=== PATIENT | female | born 1940 | race African-American/Black ===

== ENCOUNTER 2022-02-15 13:11 | Emergency (ER) | payer BC ==
[~2022-02-15] VITALS: Ht 162.6 cm; Wt 89.3 kg
[2022-02-15] MEDS ORDERED: NALOXONE 0.4 MG/ML VIAL. IV ONE (14:00)
[2022-02-15 14:09] LABS: BASO % 1 % (0-3); EOS # 0.2 x10^3/uL (0.0-0.7); EOS % 4 % (0-3); HEMATOCRIT 28.4 % (36.0-47.0); HEMOGLOBIN 9.1 g/dL (12.0-15.5); LYMPH # 0.6 x10^3/uL (1.0-4.8); LYMPH % 17 % (24-48); MEAN CORPUSCULAR HEMOGLOBIN 32 pg (25-35); MEAN CORPUSCULAR HGB CONC 32 g/dL (31-37); MEAN CORPUSCULAR VOLUME 98 fL (79-100); MONO # 0.1 x10^3/uL (0.0-1.1); MONO % 4 % (0-9); NEUT # 2.7 x10^3/uL (1.8-7.7); NEUT % 75 % (31-73); PLATELET COUNT 196 x10^3/uL (140-400); RED BLOOD COUNT 2.89 x10^6/uL (3.50-5.40); RED CELL DISTRIBUTION WIDTH 17.4 % (11.5-14.5); WHITE BLOOD COUNT 3.7 x10^3/uL (4.0-11.0)
[2022-02-15 14:47] LABS: BACTERIA,URINE 0 /HPF (0-FEW)
--- NOTE | 2022-02-15 14:48 | RAD ---
AP chest. HISTORY: Decreased level of consciousness, lethargy AP view was taken of the chest. Patient's taken a poor inspiration. There is mild atelectasis or infi ltrate at the right costophrenic angle. No other confluent infiltrates are noted. Heart is mildly pro minent. IMPRESSION: 1. Poor inspiration. 2. Mild atelectasis or infiltrate at the right costophrenic angle. Electronically signed by: Rah Mae MD (02/15/2022 2:46 PM) [facility]
--- NOTE | 2022-02-15 15:00 | RAD ---
CT HEAD/BRAIN WO History: Reason: Decreased LOC, lethargy / Spl. Instructions: / History: Comparison: None. Technique: Noncontrast CT imaging was performed of the head. Exposure: One or more of the following individualized dose reduction techniques were utilized for thi s examination: 1. Automated exposure control 2. Adjustment of the mA and/or kV according to patient size 3. Use of iterative reconstruction technique. Findings: No intracranial hemorrhage. No mass effect. No hydrocephalus. Mild foci of decreased attenuation within the hemispheric white matter, most often due to chronic lynnette rovascular ischemia. Intracranial atheromatous calcifications. Partially empty sella, often incidenta l. Imaged orbits are unremarkable. Imaged paranasal sinuses and mastoid air cells are clear. No acute ca lvarial fracture. Impression: 1. No acute intracranial abnormality. Electronically signed by: Hunter Morin DO (02/15/2022 2:58 PM) [facility]
[2022-02-15 15:19] LABS: CALCIUM 8.6 mg/dL (8.5-10.1); CREATININE 5.2 mg/dL (0.6-1.0); GFR 9.7; POTASSIUM 3.6 mmol/L (3.5-5.1)
[2022-02-15 15:24] LABS: ALBUMIN 3.2 g/dL (3.4-5.0); ALBUMIN/GLOBULIN RATIO 0.8 (1.0-1.7); MAGNESIUM 2.2 mg/dL (1.8-2.4); TOTAL BILIRUBIN 0.5 mg/dL (0.2-1.0); TOTAL PROTEIN 7.2 g/dL (6.4-8.2)
[2022-02-15 16:20] VITALS: BP 113/34
--- NOTE | 2022-02-15 16:26 | PHYS DOC ---
Past Medical History Additional Past Medical Histor: dialysis,hyperparathyroid, hepatitis C Past Surgical History: Other Additional Past Surgical Histo: left arm fistula, unknown Smoking Status: Never Smoker Alcohol Use: None General Adult EDM: Chief Complaint: ALTERED MENTAL STATUS HPI: HPI: Patient is a 81-year-old female who presents to the emergency department with complaints of sleepiness during hemodialysis. Patient was at [facility] [place] when she continued to be very sleepy as she did not sleep very well last night. Because of this they decided to not start her dialysis and called 911 to have her transported to the emergency department for further evaluation. Transporting EMS nuclear logging engineer reported a hypotensive blood pressure of 80 systolic in route, in route glucose level is 125. Patient states that she did not sleep very well last night she gets this way sometimes. Patient denies chest pains, shortness of breath, fever or chills, syncopal or near syncopal episodes, denies dizziness, denies visual disturbances. Patient states she is a hemodialysis patient and performs hemodialysis on Fridays. Patient reports had normal dialysis this past Tuesday. Patient denies other physical complaints or physical concerns. Review of Systems: Review of Systems: 14 body systems of review of systems have been reviewed. See HPI for pertinent positives and negative responses, otherwise all other systems are negative, nonpertinent or noncontributory. Constitutional: Negative except as outlined in HPI above. Skin: Negative except as outlined in HPI above. Eyes: Negative except as outlined in HPI above. HENT: Negative except as outlined in HPI above. Respiratory: Negative except as outlined in HPI above. Cardiovascular: Negative except as outlined in HPI above. GI: Negative except as outlined in HPI above. : Negative except as outlined in HPI above. Musculoskeletal: Negative except as outlined in HPI above. Integument: Negative except as outlined in HPI above. Neurologic: Negative except as outlined in HPI above. Endocrine: Negative except as outlined in HPI above. Lymphatic: Negative except as outlined in HPI above. Psychiatric: Negative except as outlined in HPI above. Heart Score: C/O Chest Pain: No Risk Factors: Risk Factors: DM, Current or recent (<one month) smoker, HTN, HLP, family history of CAD, obesity. Risk Scores: Score 0 - 3: 2.5% MACE over next 6 weeks - Discharge Home Score 4 - 6: 20.3% MACE over next 6 weeks - Admit for Clinical Observation Score 7 - 10: 72.7% MACE over next 6 weeks - Early Invasive Strategies Current Medications: Current Medications Medications (Trade) Dose Ordered Sig/Zhen Start Time Stop Time Status Last Admin Dose Admin Naloxone HCl (Narcan) 0.4 mg 1X ONCE 02/15/22 14:00 02/15/22 14:01 DC 02/15/22 14:13 0.4 MG Allergies: Allergies: Allergies Coded Allergies Type Severity Reaction Last Updated Verified Iodinated Contrast Media Allergy Intermediate 02/15/22 Yes tramadol Allergy Intermediate Swelling 02/15/22 Yes ibuprofen Adverse Reaction Intermediate INTERNAL BLEEDING 02/15/22 Yes naproxen Adverse Reaction Intermediate INTERNAL BLEEDING 02/15/22 Yes Physical Exam: PE: Constitutional: Well developed, well nourished, no acute distress, non-toxic appearance. 81-year-old female in no apparent distress. HENT: Normocephalic, atraumatic. Eyes: Conjunctiva normal, no discharge. Neck: Normal range of motion, no stridor. Cardiovascular: No cyanosis appreciated, distal cap refill less than 2 seconds. Lungs & Thorax: Patient is in no respiratory distress, no audible adventitious lung sounds appreciated. Abdomen: Nontender, no abnormalities noted. Skin: Warm, dry, no erythema, no rash. Back: No tenderness, no deformities. Extremities: No tenderness, no cyanosis, no clubbing, ROM intact, no edema. There is a hemodialysis graft left upper arm with positive bruit and thrill. Neurologic: Alert and oriented X 3, normal motor function, normal sensory function, no focal deficits noted. Patient does appear lethargic, is easily arousable to verbal stimuli, answers questions appropriately. Psychologic: Affect normal, judgement normal, mood normal. Current Patient Data: Labs: Laboratory Tests Test 02/15/22 13:25 02/15/22 13:35 02/15/22 14:08 02/15/22 14:28 Glucose (Fingerstick) 163 mg/dL White Blood Count 3.7 x10^3/uL Red Blood Count 2.89 x10^6/uL Hemoglobin 9.1 g/dL Hematocrit 28.4 % Mean Corpuscular Volume 98 fL Mean Corpuscular Hemoglobin 32 pg Mean Corpuscular Hemoglobin Concent 32 g/dL Red Cell Distribution Width 17.4 % Platelet Count 196 x10^3/uL Neutrophils (%) (Auto) 75 % Lymphocytes (%) (Auto) 17 % Monocytes (%) (Auto) 4 % Eosinophils (%) (Auto) 4 % Basophils (%) (Auto) 1 % Neutrophils # (Auto) 2.7 x10^3/uL Lymphocytes # (Auto) 0.6 x10^3/uL Monocytes # (Auto) 0.1 x10^3/uL Eosinophils # (Auto) 0.2 x10^3/uL Basophils # (Auto) 0.0 x10^3/uL Urine Collection Type U cath Urine Color (Auto) Light yellow Urine Turbidity Clear Urine pH (Auto) 5.5 Urine Specific [place] 1.020 Urine Protein (Auto) 50 mg/dL Urine Glucose (Auto)(UA) Negative mg/dL Urine Ketones (Auto) Negative mg/dL Urine Blood (Auto) Negative Urine Nitrite Negative Urine Bilirubin (Auto) Negative Urine Urobilinogen (Auto) Normal mg/dL Urine Leukocyte Esterase (Auto) Negative Urine RBC 1-2 /HPF Urine WBC 1-4 /HPF Urine Squamous Epithelial Cells Occ /LPF Urine Bacteria 0 /HPF Sodium Level 141 mmol/L Potassium Level 3.6 mmol/L Chloride Level 100 mmol/L Carbon Dioxide Level 25 mmol/L Anion Gap 16 Blood Urea Nitrogen 29 mg/dL Creatinine 5.2 mg/dL Estimated GFR (Cockcroft-Gault) 9.7 BUN/Creatinine Ratio 6 Glucose Level 159 mg/dL Calcium Level 8.6 mg/dL Magnesium Level 2.2 mg/dL Total Bilirubin 0.5 mg/dL Aspartate Amino Transf (AST/SGOT) 11 U/L Alanine Aminotransferase (ALT/SGPT) 11 U/L Alkaline Phosphatase 170 U/L Troponin I High Sensitivity 37 ng/L SH-Ldj-N-Type Natriuretic Peptide 15248 pg/mL Total Protein 7.2 g/dL Albumin 3.2 g/dL Albumin/Globulin Ratio 0.8 Current Medications Medications (Trade) Dose Ordered Sig/Zhen Route PRN Reason Start Time Stop Time Status Last Admin Dose Admin Naloxone HCl (Narcan) 0.4 mg 1X ONCE IV 02/15/22 14:00 02/15/22 14:01 DC 02/15/22 14:13 0.4 MG Laboratory Tests Test 02/15/22 13:25 02/15/22 13:35 02/15/22 14:08 02/15/22 14:28 Glucose (Fingerstick) 163 mg/dL (70-99) H White Blood Count 3.7 x10^3/uL (4.0-11.0) L Red Blood Count 2.89 x10^6/uL (3.50-5.40) L Hemoglobin 9.1 g/dL (12.0-15.5) L Hematocrit 28.4 % (36.0-47.0) L Mean Corpuscular Volume 98 fL (79-100) Mean Corpuscular Hemoglobin 32 pg (25-35) Mean Corpuscular Hemoglobin Concent 32 g/dL (31-37) Red Cell Distribution Width 17.4 % (11.5-14.5) H Platelet Count 196 x10^3/uL (140-400) Neutrophils (%) (Auto) 75 % (31-73) H Lymphocytes (%) (Auto) 17 % (24-48) L Monocytes (%) (Auto) 4 % (0-9) Eosinophils (%) (Auto) 4 % (0-3) H Basophils (%) (Auto) 1 % (0-3) Neutrophils # (Auto) 2.7 x10^3/uL (1.8-7.7) Lymphocytes # (Auto) 0.6 x10^3/uL (1.0-4.8) L Monocytes # (Auto) 0.1 x10^3/uL (0.0-1.1) Eosinophils # (Auto) 0.2 x10^3/uL (0.0-0.7) Basophils # (Auto) 0.0 x10^3/uL (0.0-0.2) Urine Collection Type U cath Urine Color (Auto) Light yellow Urine Turbidity Clear Urine pH (Auto) 5.5 (<5.0-8.0) Urine Specific [place] 1.020 (1.000-1.030) Urine Protein (Auto) 50 mg/dL (Negative) Urine Glucose (Auto)(UA) Negative mg/dL (Negative) Urine Ketones (Auto) Negative mg/dL (Negative) Urine Blood (Auto) Negative (Negative) Urine Nitrite Negative (Negative) Urine Bilirubin (Auto) Negative (Negative) Urine Urobilinogen (Auto) Normal mg/dL (Normal) Urine Leukocyte Esterase (Auto) Negative (Negative) Urine RBC 1-2 /HPF (0-2) Urine WBC 1-4 /HPF (0-4) Urine Squamous Epithelial Cells Occ /LPF Urine Bacteria 0 /HPF (0-FEW) Sodium Level 141 mmol/L (136-145) Potassium Level 3.6 mmol/L (3.5-5.1) Chloride Level 100 mmol/L (98-107) Carbon Dioxide Level 25 mmol/L (21-32) Anion Gap 16 (6-14) H Blood Urea Nitrogen 29 mg/dL (7-20) H Creatinine 5.2 mg/dL (0.6-1.0) H Estimated GFR (Cockcroft-Gault) 9.7 BUN/Creatinine Ratio 6 (6-20) Glucose Level 159 mg/dL (70-99) H Calcium Level 8.6 mg/dL (8.5-10.1) Magnesium Level 2.2 mg/dL (1.8-2.4) Total Bilirubin 0.5 mg/dL (0.2-1.0) Aspartate Amino Transferase (AST) 11 U/L (15-37) L Alanine Aminotransferase (ALT) 11 U/L (14-59) L Alkaline Phosphatase 170 U/L (46-116) H Troponin I High Sensitivity 37 ng/L (4-50) XH-Clj-P-Type Natriuretic Peptide 75610 pg/mL (0-449) H Total Protein 7.2 g/dL (6.4-8.2) Albumin 3.2 g/dL (3.4-5.0) L Albumin/Globulin Ratio 0.8 (1.0-1.7) L Laboratory Tests 02/15/22 13:35 Laboratory Tests 02/15/22 14:28 Vital Signs: Vital Signs Date Time Temp Pulse Resp B/P (MAP) Pulse Ox O2 Delivery O2 Flow Rate FiO2 02/15/22 14:15 68 16 115/62 (79) 100 Nasal Cannula 2.0 02/15/22 13:19 97.5 97.5 EKG: EKG: EKG performed at 1317 by ED nursing staff shows a normal sinus rhythm heart rate 73 bpm, no other ectopy appreciated, VA interval 0.198, QTc interval 0.502, no acute STEMI, no ACS, no acute ischemia appreciated, EKG interpreted by ED attending physician Dr. Garcia. Radiology/Procedures: Radiology/Procedures: STATUS: REG ER ORD. PHYSICIAN: BALDOMERO GLASGOW APRN REASON: Decreased LOC, lethargy PROCEDURE: CT HEAD WO CONTRAST CT HEAD/BRAIN WO History: Reason: Decreased LOC, lethargy / Spl. Instructions: / History: Comparison: None. Technique: Noncontrast CT imaging was performed of the head. Exposure: One or more of the following individualized dose reduction techniques were utilized for this examination: 1. Automated exposure control 2. Adjustment of the mA and/or kV according to patient size 3. Use of iterative reconstruction technique. Findings: No intracranial hemorrhage. No mass effect. No hydrocephalus. Mild foci of decreased attenuation within the hemispheric white matter, most o ften due to chronic microvascular ischemia. Intracranial atheromatous calcifications. Partially empty sella, often incidental. Imaged orbits are unremarkable. Imaged paranasal sinuses and mastoid air cells are clear. No acute calvarial fracture. Impression: 1. No acute intracranial abnormality. Electronically signed by: Hunter Morin DO (02/15/2022 2:58 PM) [facility] REASON: Decreased LOC, lethargy PROCEDURE: PORTABLE CHEST 1V AP chest. HISTORY: Decreased level of consciousness, lethargy AP view was taken of the chest. Patient's taken a poor inspiration. There is mild atelectasis or infiltrate at the right costophrenic angle. No other confluent infiltrates are noted. Heart is mildly prominent. IMPRESSION: 1. Poor inspiration. 2. Mild atelectasis or infiltrate at the right costophrenic angle. Electronically signed by: Rah Mae MD (02/15/2022 2:46 PM) [facility] Course & Med Decision Making: Course & Med Decision Making Pertinent Labs and Imaging studies reviewed. (See chart for details) 81-year-old female, vital signs reviewed, presents emerged from concerning sleepiness during hemodialysis treatment today. Physical examination concerning for lethargy related to lack of sleep, there may be a medication component to this. Will give 0.4 Narcan and monitor for neurological changes. We will also order CT head without contrast, cardiac and blood pressure monitoring with pulse ox monitoring, twelve-lead EKG, saline lock, chest x-ray, CBC, CMP, urinalysis assay, high-sensitivity troponin I, magnesium level, NT proBNP. Patient's chest x-ray is unremarkable, EKG is nonconcerning, labs are nonc oncerning or at baseline. The patient's urine is not infected. Patient's daughter is at bedside, states that she gets like this when she does not sleep, patient's daughter states that she did not sleep last night. Patient is awake in bed currently, states she feels fine and is ready to go home. Discussed with patient she did not receive a full dialysis today, her labs are nonconcerning, discussed with patient to call the [facility] to see if she can have partial dialysis baby later today and/or tomorrow otherwise stay with Tuesday hemodialysis. Discussed with patient getting adequate sleep so that she does not alarm her dialysis center staff in the future. Patient feels safe going home, patient's daughter feels safe taking patient home. Patient gave verbal understanding of ED discharge planning. Discussed with the patient all findings and diagnostic testing as well as the need to follow-up with their primary care provider for further evaluation and treatment or return to the ED if any new or worsening symptoms. Strict return precautions were also discussed at length, the patient voiced understanding and agreement with the discharge planning. The patient was nontoxic in appearance, in no apparent distress, and hemodynamically stable at the time of disposition. Dragon Disclaimer: DragLalina Disclaimer: This electronic medical record was generated, in whole or in part, using a voice recognition dictation system. Departure Departure Impression: Primary Impression: Daytime sleepiness Disposition: HOME / SELF CARE / HOMELESS Condition: GOOD Referrals: Violeta DAVIS MD (PCP) Additional Instructions: You were seen today in the emergency department related to sleepiness at your dialysis center. Your dialysis center sent you here because they were unable to satisfactorily arouse you. Your labs and imaging in the emergency department today were nonconcerning. You had indicated you did not sleep very well last night. Please try and get better sleep so you do not alarm your dialysis center personnel in the future. Please continue with your Tuesday hemodialysis. Thank you for visiting our Emergency Department. It was a pleasure taking care of you today in the emergency department and we appreciate you trusting us with your care. If any additional problems come up don't hesitate to return to visit us. Please follow up with your primary care provider so they can plan additional care if needed and know about the problem that you had. If symptoms worsen come back to the Emergency Department. Any concerning symptoms that start such as chest pain, shortness of air, weakness or numbness on one side of the body, running high fevers or any other concerning symptoms return to the ER. BALDOMERO GLASGOW APRN February 15, 2022 16:26
--- NOTE | 2022-02-16 09:08 | EKG ---
[facility] [address] [place] [address] Test Date: 2022-02-15 Test Time: 13:17:39 Pat Name: CAROLYNE FRASER Department: Room: Gender: F Pin Inserter Regulator: : 1940 Requested By: BALDOMERO GLASGOW Order Number: [id number] Reading MD: Akbar Burns MD Measurements Intervals [place] Rate: 73 P: -176 [place]: 198 QRS: -161 QRSD: 94 T: 50 QT: 452 QTc: 502 Interpretive Statements SR LIMB LEAD MISPLACEMENT Electronically Signed On 02-16-2022 10:56:54 CDT by Akbar Burns MD
== END 2022-02-15 16:31 | disposition home or self-care (01) ==
LOC: ER 13:11
DX: R40.0 Somnolence (principal); G47.00 Insomnia, unspecified; Z99.2 Dependence on renal dialysis; Z91.041 Radiographic dye allergy status; Z88.6 Allergy status to analgesic agent; Z88.8 Allergy status to other drugs, medicaments and biological substances
CPT/HCPCS: 36415; 70450; 71045; 80053; 81001; 82962; 83735; 83880; 84484; 85025; 93005; 96374; 99285; J2310; P9612